=== PATIENT | female | born 1980 | race Caucasian/White ===

== ENCOUNTER → 2024-08-09 | Outpatient (CLI) | payer MEDICAID, SELFPAY ==
--- NOTE | 2024-08-09 08:15 | XR_ITS ---
Examination: Screening digital mammography, bilateral Computer aided detection 3-D breast Tomosynthesis, bilateral Date and time of exam: August 09, 2024 0756 hours Indication: Screening Technique: Nonmagnified MLO, CC views of the breasts to been obtained, reconstructed from 3-D Tomosynthesis images. R2 computer aided detection program utilized for evaluation of suspicious masses and/or abnormal calcifications. 3-D Tomosynthesis images obtained. Findings: The breasts are heterogeneously dense, which may obscure small masses 12 mm focal asymmetry inner left breast CC view, 3.6 cm from the nipple Benign calcifications Impression: BI-RADS Category 0: Incomplete: Need additional imaging evaluation 12 mm focal asymmetry inner left breast CC view, 3.6 cm from the nipple, recommend follow-up spot tomographic views inner upper left breast anterior depth, bilateral breast sonography to complete the workup.
== END | disposition home or self-care (01) ==
PROVIDERS: Referring Provider Physician Assistant; Visit Provider Physician Assistant
DX: Z12.31 Encounter for screening mammogram for malignant neoplasm of breast (principal); R92.8 Other abnormal and inconclusive findings on diagnostic imaging of breast; N64.89 Other specified disorders of breast
CPT/HCPCS: 77063; 77067

== ENCOUNTER → 2024-09-24 | Outpatient (CLI) | payer MEDICAID, SELFPAY ==
--- NOTE | 2024-09-24 07:15 | XR_ITS ---
Examination: Breast ultrasound complete, bilateral Date and time of exam: September 24, 2024 0727 hours INDICATIONS: Mammogram August 09, 2024 12 mm focal asymmetry inner left breast CC view Technique: Real-time grayscale ultrasonographic imaging bilateral breasts, including all 4 quadrants as well as nipple retroareolar and axillary regions. Findings: Sonographic images right breast 6:00 cyst 3 x 3 mm, no solid nodules Sonographic images left breast Multiple benign cysts 2:00 oval mass lobular margins 5 x 4 mm 4:00 oval mass circumscribed 8 x 4 mm 5:00 oval mass lobular margins 7 x 10 mm IMPRESSION: BI-RADS Category 3 probably: Probably benign findings One additional 6 month left breast sonogram follow-up needed to document stability of left breast nodules
--- NOTE | 2024-09-24 08:15 | XR_ITS ---
Examination: Diagnostic digital mammography, unilateral, left Computer aided detection 3-D breast Tomosynthesis, unilateral Date and time of exam: October 04, 2024 0714 hours INDICATIONS: Mammogram August 09, 2024 12 mm focal asymmetry inner left breast CC view Technique: Nonmagnified MLO, CC views of the left breast have been obtained, reconstructed from 3-D Tomosynthesis images. R2 computer aided detection program utilized for evaluation of suspicious masses and/or abnormal calcifications. 3-D Tomosynthesis images obtained. Findings: The breast is heterogeneously dense, which may obscure small masses No suspicious mass depicted on the spot tomographic views Impression: BI-RADS category 2: Benign findings Return to yearly follow-up mammography Please see the left breast sonogram report today requiring 6 month left breast sonogram follow-up
== END | disposition home or self-care (01) ==
LOC: CDIM 07:06
PROVIDERS: PCP Physician Assistant; Referring Provider Physician Assistant; Visit Provider Physician Assistant
DX: R92.322 Mammographic fibroglandular density, left breast (principal); N63.21 Unspecified lump in the left breast, upper outer quadrant; N63.23 Unspecified lump in the left breast, lower outer quadrant
CPT/HCPCS: 76641; 77061; 77065; G0279

== ENCOUNTER → 2025-04-29 | Outpatient (CLI) | payer MEDICAID, SELFPAY ==
--- NOTE | 2025-04-29 08:15 | XR_ITS ---
Examination: Breast ultrasound, unilateral, left complete Date and time of exam: April 29, 2025, 0807 hours Left breast sonogram 10/25/2024 2:00 nodule 5 mm 4:00 nodule 8 mm 5:00 nodule 10 mm Technique: Real-time hemphill scale ultrasonographic imaging performed left breast including all 4 quadrants as well as nipple retroareolar and axillary region. Findings: 2:00 cyst 8 x 8 mm 3:00 cyst, 5 x 6 mm 3:00 cyst 6 x 5 mm 4:00 nodule circumscribed 9 x 6 mm 8:00 nodule circumscribed 8 x 5 mm 11:00 cyst 4 x 3 mm IMPRESSION: BI-RADS Category 2: Benign findings
== END | disposition home or self-care (01) ==
PROVIDERS: PCP Physician Assistant; Referring Provider Physician Assistant; Visit Provider Physician Assistant
DX: R92.322 Mammographic fibroglandular density, left breast (principal)
CPT/HCPCS: 76641